=== PATIENT | female | born 1985 | race Caucasian/White ===

== ENCOUNTER 2017-10-22 04:44 | Inpatient (IN) | payer SELFPAY ==
[~2017-10-22] VITALS: Ht 163.8 cm; Wt 76.9 kg
[2017-10-22 09:57] VITALS: BP 105/68; PULSE 83; RESP 19; TEMP 97.6
[2017-10-22] MEDS: SERTRALINE HCL 50 MG TAB PO SCH (16:00)
[2017-10-22] MEDS: NICOTINE 21 MG/24 HR PATCH T-DERMAL SCH (16:15)
[2017-10-22] MEDS ORDERED: MAGNESIUM HYDROXIDE SUSP 30 ML CUP PO PRN (16:15)
[2017-10-22] MEDS ORDERED: ALUMINUM/MAGNESIUM/SIMETH 30 ML CUP PO PRN (16:15)
[2017-10-22] MEDS: ACETAMINOPHEN 325 MG TAB PO PRN (17:17)
[2017-10-22 18:23] VITALS: BP 102/67; PULSE 102; RESP 16; TEMP 97.6; TEMP 97.9; O2SAT 98
[2017-10-22] MEDS ORDERED: LORazepam 2 MG/ML VIAL IM PRN (18:30)
[2017-10-22] MEDS ORDERED: diphenhydrAMINE HCL 50 MG/ML VIAL - HS PRN IM (18:30)
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
[2017-10-22] MEDS: REMOVE OLD PATCH T-DERMAL SCH (21:08)
[2017-10-23] MEDS: diphenhydrAMINE HCL 50 MG CAP PO PRN (00:51)
[2017-10-23] MEDS: ACETAMINOPHEN 325 MG TAB PO PRN (00:51)
[2017-10-23 06:16] VITALS: BP 98/52; PULSE 75; RESP 16; TEMP 98.3; O2SAT 100
[2017-10-23] MEDS: REMOVE OLD PATCH T-DERMAL SCH (08:45)
[2017-10-23] MEDS: NICOTINE 21 MG/24 HR PATCH T-DERMAL SCH (08:45)
[2017-10-23 08:55] LABS: BLOOD UREA NITROGEN 9 MG/DL (7-18); CALCIUM 8.6 MG/DL (8.5-10.1); CHLORIDE 103 MEQ/L (98-107); CREATININE 0.82 MG/DL (0.50-1.00); GLOMERULAR FILTRATION RATE 81 ML/MIN (>89); GLUCOSE,RANDOM 122 MG/DL (74-106); SODIUM (NA) 139 MEQ/L (136-145)
[2017-10-23 08:57] LABS: CHOLESTEROL 194 MG/DL (120-200); TRIGLYCERIDES 207 MG/DL (42-150)
[2017-10-23] MEDS: SERTRALINE HCL 50 MG TAB PO SCH (08:57)
[2017-10-23] MEDS: hydrOXYzine HCL 50 MG TAB PO PRN (09:03)
[2017-10-23 09:07] LABS: CHOLESTEROL/ HDL RATIO 4.23 RATIO; HDL CHOLESTEROL 45.8 MG/DL (40.0-60.0); LDL CHOLESTEROL 107 MG/DL (0-99)
[2017-10-23] MEDS: QUEtiapine FUMARATE 25 MG TAB PO SCH (10:45)
[2017-10-23 11:33] LABS: HEMOGLOBIN A1C 4.9 % (4.3-6.0)
--- NOTE | 2017-10-23 12:28 | HHI.PYPN ---
Subjective Remarks Reviewed electronic medical records and discuss case with staff. Follow-up was conducted in the hallway with FANI Perez present. Staff reports that patient has been very paranoid, accusatory, and anxious. She has however been compliant with her medications. Patient reports that she slept well and has had a good appetite. She reports feeling anxious which is evidenced by her restless behavior during the interview. She does report having intermittent auditory hallucinations. She states that they tend to go away with medication and the last time she experienced these were yesterday. Mental Status Examination Appearance: Appropriate Consciousness: Alert Orientation: Person, Place, Date/Time Motor Activity: Normal gait Speech: Slow, Other (Low volume) Language: Adequate Fund of Knowledge: Inadequate Attention and Concentration: Adequate Memory: Unremarkable Mood: Sad Affect: Blunt Thought Process & Associations: Linear, Other ([place]) Thought Content: Thought blocking Hallucination Type: Auditory (Denies at this time) Delusion Type: Paranoid Suicidal Ideation: Yes (Denies at this time) Suicidal Plan: No Suicidal Intention: No Homicidal Ideation: No Homicidal Plan: No Homicidal Intention: No Insight: Fair Judgment: Impulsive Results Labs Test 10/23/17 08:15 Blood Urea Nitrogen 9 MG/DL Creatinine 0.82 MG/DL Random Glucose 122 MG/DL Calcium Level 8.6 MG/DL Sodium Level 139 MEQ/L Potassium Level 4.0 MEQ/L Chloride Level 103 MEQ/L Carbon Dioxide Level 28.0 MEQ/L Anion Gap 8 MEQ/L Estimat Glomerular Filtration Rate 81 ML/MIN Hemoglobin A1c 4.9 % Triglycerides Level 207 MG/DL Cholesterol Level 194 MG/DL LDL Cholesterol 107 MG/DL HDL Cholesterol 45.8 MG/DL Cholesterol/HDL Ratio 4.23 RATIO Thyroid Stimulating Hormone 3rd Gen 1.300 uIU/ML Vitals/IOs Vital Signs Date Time Temp Pulse Resp B/P (MAP) Pulse Ox O2 Delivery O2 Flow Rate FiO2 10/23/17 06:16 98.3 75 16 98/52 (67) 100 Intake and Output 10/23/17 10/23/17 10/24/17 08:00 16:00 00:00 Intake Total 240 ml Balance 240 ml Assessment & Plan Problem List: (1) Schizoaffective disorder ICD Codes: F25.9 - Schizoaffective disorder, unspecified Assessment & Plan Estimated LOS: Patient continues to be symptomatic. Continue with current treatment plan and monitor for psychiatric stabilization. Days Justification for Cont. Inpt. Moving this patient to a less restrictive environment would likely result in a decompensation. Patient continues to exhibit symptoms. Carole Abad Oct 23, 2017 12:28
[2017-10-23] MEDS: LORazepam 1 MG TAB PO PRN (14:57)
--- NOTE | 2017-10-23 15:29 | EKG ---
Date Performed: 10/23/2017 Time Performed: 12:39:45 PTAGE: 31 years EKG: Sinus rhythm NORMAL ECG PREVIOUS TRACING : 01/04/1998 07.50 Since the previous tracing, no significant change noted DOCTOR: Serjio Gomez Interpretating Date/Time 10/23/2017 15:27:43
[2017-10-23 18:38] VITALS: BP 102/57; PULSE 104; RESP 16; TEMP 98; O2SAT 97
[2017-10-23] MEDS: QUEtiapine FUMARATE 100 MG TAB PO SCH (21:21)
[2017-10-24 05:43] VITALS: BP 117/54; PULSE 78; RESP 16; TEMP 97.7; O2SAT 99
[2017-10-24] MEDS: QUEtiapine FUMARATE 25 MG TAB PO SCH (08:24)
[2017-10-24] MEDS: SERTRALINE HCL 50 MG TAB PO SCH (08:25)
[2017-10-24] MEDS: NICOTINE 21 MG/24 HR PATCH T-DERMAL SCH (08:40)
[2017-10-24] MEDS: REMOVE OLD PATCH T-DERMAL SCH (08:40)
--- NOTE | 2017-10-24 12:07 | HHI.PYPN ---
Subjective Remarks Reviewed electronic medical record discussed case with staff. Follow-up was conducted in patient's room. Her nurse reports she has been very lethargic and sleeping most of the morning. She is reported to her nurse that she is experienced a decrease and volume and intensity of the voices. She reports that she is feeling good she has had a good appetite. She denies any thoughts of self-harm. She does state that the voices are still there however she reports that there are "conversations" at this time. Mental Status Examination Appearance: Appropriate Consciousness: Alert Orientation: Person, Place, Date/Time Motor Activity: Normal gait Speech: Slow, Other (Low volume) Language: Adequate Fund of Knowledge: Inadequate Attention and Concentration: Adequate Memory: Unremarkable Mood: Sad Affect: Blunt Thought Process & Associations: Linear, Other ([place]) Thought Content: Thought blocking Hallucination Type: Auditory (Denies at this time) Delusion Type: Paranoid Suicidal Ideation: Yes (Denies at this time) Suicidal Plan: No Suicidal Intention: No Homicidal Ideation: No Homicidal Plan: No Homicidal Intention: No Insight: Fair Judgment: Impulsive Results Vitals/IOs Vital Signs Date Time Temp Pulse Resp B/P (MAP) Pulse Ox O2 Delivery O2 Flow Rate FiO2 10/24/17 05:43 97.7 78 16 117/54 (75) 99 Intake and Output 10/24/17 10/24/17 10/25/17 08:00 16:00 00:00 Intake Total 240 ml Balance 240 ml Assessment & Plan Problem List: (1) Schizoaffective disorder ICD Codes: F25.9 - Schizoaffective disorder, unspecified Assessment & Plan Estimated LOS: Continue with current treatment plan. Patient is reporting a decrease and her auditory hallucinations. She will be reevaluated by her attending psychiatrist tomorrow. Days Justification for Cont. Inpt. Moving this patient to a less restrictive environment could result in a decompensation. Carole Abad Oct 24, 2017 12:07
[2017-10-24 18:28] VITALS: BP 102/53; PULSE 101; RESP 18; TEMP 97.8; O2SAT 100
[2017-10-24] MEDS: QUEtiapine FUMARATE 100 MG TAB PO SCH (20:30)
[2017-10-25 05:22] VITALS: BP 96/57; PULSE 73; RESP 16; TEMP 98; O2SAT 98
[2017-10-25] MEDS: QUEtiapine FUMARATE 25 MG TAB PO SCH (08:45)
[2017-10-25] MEDS: SERTRALINE HCL 50 MG TAB PO SCH (08:45)
[2017-10-25] MEDS: NICOTINE 21 MG/24 HR PATCH T-DERMAL SCH (09:00)
[2017-10-25] MEDS: REMOVE OLD PATCH T-DERMAL SCH (09:00)
[2017-10-25] MEDS: hydrOXYzine HCL 50 MG TAB PO PRN ×2 (12:05→20:54)
--- NOTE | 2017-10-25 16:25 | PD.TTN ---
Patient Problems 1. Discharge planning 2. Medication compliance 3. Knowledge deficit 4. Lack of coping skills Progress Toward Goals Provider Present: Dr. Mirza Holcomb Provider Input: 10/25 still meets criterian for titration can benefit from more structured environment Psychiatric Counselors Present: Patty Sarmiento LCSW Psych Therapist Input: 10/25 referred to [facility] today Group Spec/RT/OT/HAUSER Present: MURTAZA Williamson Group Spec/RT/OT/HAUSER Input: 10/25 attends most groups Patty Sarmiento LCSW Oct 25, 2017 16:25
--- NOTE | 2017-10-25 16:58 | HHI.PYPN ---
Subjective Remarks Patient seen for follow, chart reviewed. Discussion nursing staff reported the patient noted B quiet somewhat seclusive but visible on the unit. Patient states that medications are helping continues to have auditory hallucinations of "conversations and no longer directed at her. Patient denies any visual hallucinations today. Patient also reports not feeling like "back in time like in [place]". Patient continues to have some bizarre thinking but no longer noted to be internally preoccupied as much. Patient also reports having spoken to her mother which did not elaborate on. Patient mentions wanting assistance to referral to an assisted living facility and provider to her payee in [place]. Review of Systems Except as stated in HPI: all other systems reviewed are Neg Mental Status Examination Appearance: Appropriate Consciousness: Alert Orientation: Person, Place, Date/Time Motor Activity: Normal gait Speech: Slow, Other (Low volume) Language: Adequate Fund of Knowledge: Inadequate Attention and Concentration: Adequate Memory: Unremarkable Mood: Sad Affect: Blunt Thought Process & Associations: Linear, Other ([place]) Thought Content: Thought blocking (Lessening) Hallucination Type: Auditory (Denies at this time) Delusion Type: Paranoid Suicidal Ideation: No Suicidal Plan: No Suicidal Intention: No Homicidal Ideation: No Homicidal Plan: No Homicidal Intention: No Insight: Fair Judgment: Impulsive Results Vitals/IOs Vital Signs Date Time Temp Pulse Resp B/P (MAP) Pulse Ox O2 Delivery O2 Flow Rate FiO2 10/25/17 05:22 98.0 73 16 96/57 (70) 98 Assessment & Plan Problem List: (1) Schizoaffective disorder ICD Codes: F25.9 - Schizoaffective disorder, unspecified Assessment & Plan Patient at this time continues with auditory hallucinations which are decreasing as well as decrease in delusions and noted to be more organized today. We will continue to titrate quetiapine to 50 mg a.m./200 mg at bedtime for mood stabilization and psychosis. We will continue to monitor mood and behavior. Treatment he will continue to explore options for referral to an assisted living facility. Discharge planning in progress. Justification for Cont. Inpt. At risk for further decompensation if at lower level of care Augustine Holcomb MD Oct 25, 2017 16:58
[2017-10-25] MEDS: LORazepam 1 MG TAB PO PRN (18:02)
[2017-10-25] MEDS ORDERED: QUEtiapine FUMARATE 100 MG TAB PO SCH (21:00)
[2017-10-25] MEDS: diphenhydrAMINE HCL 50 MG CAP PO PRN (22:22)
[2017-10-26 06:21] VITALS: BP 98/60; PULSE 77; RESP 16; TEMP 97.8; O2SAT 99
[2017-10-26] MEDS: REMOVE OLD PATCH T-DERMAL SCH (09:00)
[2017-10-26] MEDS: SERTRALINE HCL 50 MG TAB PO SCH (09:45)
[2017-10-26] MEDS: NICOTINE 21 MG/24 HR PATCH T-DERMAL SCH (09:46)
[2017-10-26] MEDS: QUEtiapine FUMARATE 25 MG TAB PO SCH (09:46)
[2017-10-26] MEDS: hydrOXYzine HCL 50 MG TAB PO PRN ×2 (11:55→20:13)
[2017-10-26] MEDS ORDERED: PILL SPLITTER OTHER PRN (13:15)
--- NOTE | 2017-10-26 16:18 | HHI.PYPN ---
Subjective Remarks Patient seen for follow, chart reviewed. Discussion nursing staff reported the patient slept well, eating and drinking well continues to have auditory hallucinations of her name being called but decreasing in intensity and frequency. Patient states medications are helpful and that her mood has been "good" denying any paranoid ideations at this time. Patient states that she would feel more comfortable having her doses of her Seroquel in the morning to assist with her mood during the day. Review of Systems Except as stated in HPI: all other systems reviewed are Neg Mental Status Examination Appearance: Appropriate Consciousness: Alert Orientation: Person, Place, Date/Time Motor Activity: Normal gait Speech: Slow, Other (Low volume) Language: Adequate Fund of Knowledge: Inadequate Attention and Concentration: Adequate Memory: Unremarkable Mood: Sad (Less today) Affect: Blunt Thought Process & Associations: Linear, Other ([place]) Thought Content: Thought blocking (Lessening) Hallucination Type: Auditory (Voices calling her name) Delusion Type: Paranoid (Denies been noted to be somewhat paranoid) Suicidal Ideation: No Suicidal Plan: No Suicidal Intention: No Homicidal Ideation: No Homicidal Plan: No Homicidal Intention: No Insight: Fair Judgment: Impulsive Results Vitals/IOs Vital Signs Date Time Temp Pulse Resp B/P (MAP) Pulse Ox O2 Delivery O2 Flow Rate FiO2 10/26/17 06:21 97.8 77 16 98/60 (73) 99 Assessment & Plan Problem List: (1) Schizoaffective disorder ICD Codes: F25.9 - Schizoaffective disorder, unspecified Assessment & Plan Patient this time continues with auditory hallucinations, low decreasing in intensity and frequency. Patient also noted to be somewhat paranoid although denies this at this time. We will continue to titrate quetiapine to 100 mg p.o. a.m./200 mg p.o. at bedtime for mood stabilization and psychosis. Continue rest of medications. We will continue to monitor mood and behavior. Discharge planning in progress. Justification for Cont. Inpt. At risk of further decompensation a lower level of care Augustine Holcomb MD Oct 26, 2017 16:18
[2017-10-26 18:04] VITALS: BP 110/58; PULSE 97; RESP 18; TEMP 97.8; O2SAT 98
[2017-10-26] MEDS: QUEtiapine FUMARATE 100 MG TAB PO SCH (20:13)
[2017-10-26] MEDS ORDERED: QUEtiapine FUMARATE 100 MG TAB PO SCH (21:00)
[2017-10-27] MEDS: REMOVE OLD PATCH T-DERMAL SCH (08:14)
[2017-10-27] MEDS: QUEtiapine FUMARATE 25 MG TAB PO SCH (08:14)
[2017-10-27] MEDS: SERTRALINE HCL 50 MG TAB PO SCH (08:14)
[2017-10-27] MEDS: NICOTINE 21 MG/24 HR PATCH T-DERMAL SCH (08:14)
--- NOTE | 2017-10-27 15:00 | RADRPT ---
EXAM DATE: 10/27/2017 2:57 PM EDT AGE/SEX: 31 years / Female INDICATIONS: Cough. CLINICAL DATA: This is the patient's initial encounter. Patient reports that signs and symptoms have been present for 1 day and indicates a pain score of 0/10. MEDICAL/SURGICAL HISTORY: None. None. COMPARISON: No prior exams available for comparison. FINDINGS: PA and lateral views of the chest demonstrate the lungs to be symmetrically aerated without evidence of mass, infiltrate or effusion. The cardiomediastinal contours are unremarkable. Osseous structures are intact. CONCLUSION: Negative for acute process Electronically signed by: Bubba Barriga MD 10/27/2017 2:59 PM EDT
--- NOTE | 2017-10-27 18:12 | HHI.PYPN ---
Subjective Remarks Patient seen for follow, chart reviewed. Discussion nursing staff reported the patient admit with [facility] financial service representative, denying any auditory hallucinations today. Patient was found lying in hospital bed noted, cooperative. Patient states that she had been feeling somewhat anxious due to unclear disposition post discharge. She states she met with a financial service representative from [facility] and states that it went well and is hopeful to be able to be referred there was insurance issues have been resolved. Patient reports her mood has been "good" denying hallucinations today last time being yesterday. Patient states she is attending groups. Patient reports having had some anxiety surrounding her referral to an [facility]. Review of Systems Except as stated in HPI: all other systems reviewed are Neg Mental Status Examination Appearance: Appropriate Consciousness: Alert Orientation: Person, Place, Date/Time Motor Activity: Normal gait Speech: Slow, Other (Low volume) Language: Adequate Fund of Knowledge: Inadequate Attention and Concentration: Adequate Memory: Unremarkable Mood: Anxious Affect: Anxious Thought Process & Associations: Linear, Other ([place]) Thought Content: Thought blocking (Lessening) Hallucination Type: Auditory (Voices calling her name) Delusion Type: Paranoid (Lessening) Suicidal Ideation: No Suicidal Plan: No Suicidal Intention: No Homicidal Ideation: No Homicidal Plan: No Homicidal Intention: No Insight: Fair Judgment: Impulsive Results Vitals/IOs Vital Signs Date Time Temp Pulse Resp B/P (MAP) Pulse Ox O2 Delivery O2 Flow Rate FiO2 10/26/17 18:04 97.8 97 18 110/58 (75) 98 Assessment & Plan Problem List: (1) Schizoaffective disorder ICD Codes: F25.9 - Schizoaffective disorder, unspecified Assessment & Plan Patient this time appears to be improving with current treatment regimen denying any auditory hallucinations today, denying feeling depressed but noted to be more anxious. Patient to continue hydroxyzine as needed for anxiety we will discontinue lorazepam. We will continue rest of medications. Continue to monitor mood and behavior. Discharge planning a progress. Justification for Cont. Inpt. At risk of further decompensation a lower level care. Augustine Holcomb MD Oct 27, 2017 18:12
[2017-10-27 18:42] VITALS: BP 113/64; PULSE 98; RESP 18; TEMP 97.6; O2SAT 99
[2017-10-27] MEDS: QUEtiapine FUMARATE 100 MG TAB PO SCH (20:47)
[2017-10-28 05:58] VITALS: BP 108/60; PULSE 99; RESP 16; TEMP 97.9; O2SAT 98
[2017-10-28] MEDS: NICOTINE 21 MG/24 HR PATCH T-DERMAL SCH (09:00)
[2017-10-28] MEDS: REMOVE OLD PATCH T-DERMAL SCH (09:00)
[2017-10-28] MEDS: SERTRALINE HCL 50 MG TAB PO SCH (09:09)
[2017-10-28] MEDS: QUEtiapine FUMARATE 25 MG TAB PO SCH (09:09)
[2017-10-28] MEDS ORDERED: ZOLO50TA PO (15:16)
[2017-10-28] MEDS ORDERED: QUET1TAB9 PO (15:16)
[2017-10-28] MEDS ORDERED: QUET1TAB8 PO (15:16)
[2017-10-28] MEDS ORDERED: HYDR50TA94 PO (15:52)
--- NOTE | 2017-10-28 18:17 | HHI.PYPN ---
Subjective Remarks Patient seen for follow-up, chart reviewed. Discussion nursing staff reported the patient with decreasing auditory hallucinations noted to be somewhat anxious. Patient was found family on unit noted B, cooperative. Patient reports that she is feeling somewhat better, reporting decrease his auditory hallucinations and slept better last evening. Patient states that she is trying to attend more groups. Patient denies any suicide ideations at this time. Review of Systems Except as stated in HPI: all other systems reviewed are Neg Mental Status Examination Appearance: Appropriate Consciousness: Alert Orientation: Person, Place, Date/Time Motor Activity: Normal gait Speech: Unremarkable Language: Adequate Fund of Knowledge: Inadequate Attention and Concentration: Adequate Memory: Unremarkable Mood: Anxious Affect: Anxious Thought Process & Associations: Intact, Linear Thought Content: Appropriate Hallucination Type: Auditory (Lessening) Delusion Type: None Suicidal Ideation: No Suicidal Plan: No Suicidal Intention: No Homicidal Ideation: No Homicidal Plan: No Homicidal Intention: No Insight: Fair Judgment: Impulsive Results Vitals/IOs Vital Signs Date Time Temp Pulse Resp B/P (MAP) Pulse Ox O2 Delivery O2 Flow Rate FiO2 10/28/17 05:58 97.9 99 16 108/60 (76) 98 Intake and Output 10/28/17 10/28/17 10/29/17 08:00 16:00 00:00 Intake Total 360 ml Balance 360 ml Assessment & Plan Problem List: (1) Schizoaffective disorder ICD Codes: F25.9 - Schizoaffective disorder, unspecified Assessment & Plan Patient this time noted with improvement in mood, although reporting feeling anxious. Patient with decreasing auditory hallucinations, denying suicide ideations. Patient appear to be improving and likely for discharge tomorrow to an assisted living facility. Continue current treatment. Continue monitor mood and behavior. Discharge planning in progress. Justification for Cont. Inpt. At risk of further decompensation a lower level of care. Discharge Planning Referral to an assisted living facility. Augustine Holcomb MD Oct 28, 2017 18:17
[2017-10-28 18:55] VITALS: BP 91/51; PULSE 88; RESP 18; TEMP 97.7; O2SAT 100
[2017-10-28] MEDS: QUEtiapine FUMARATE 100 MG TAB PO SCH (21:03)
[2017-10-28] MEDS: diphenhydrAMINE HCL 50 MG CAP PO PRN (21:28)
[2017-10-29 06:17] VITALS: BP 96/51; PULSE 96; RESP 14; TEMP 97.8; O2SAT 96
[2017-10-29] MEDS: REMOVE OLD PATCH T-DERMAL SCH (09:00)
[2017-10-29] MEDS: QUEtiapine FUMARATE 25 MG TAB PO SCH (10:30)
[2017-10-29] MEDS: SERTRALINE HCL 50 MG TAB PO SCH (10:30)
[2017-10-29] MEDS: NICOTINE 21 MG/24 HR PATCH T-DERMAL SCH (10:33)
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
== END 2017-10-29 13:30 | DRG 885 ==
LOC: UNDOADMIN 05:37 → H270 05:37 → H260 08:37
PROVIDERS: ADMIT Student in an Organized Health Care Education/Training Program; ATTEND Student in an Organized Health Care Education/Training Program
DX: F25.9 Schizoaffective disorder, unspecified (principal); Z59.0 Homelessness; F17.210 Nicotine dependence, cigarettes, uncomplicated; F12.90 Cannabis use, unspecified, uncomplicated; Z81.8 Family history of other mental and behavioral disorders
CPT/HCPCS: 71046; 80048; 80061; 83036; 84443; 93005; Q0163